=== PATIENT | female | born 1985 | race Caucasian/White ===

== ENCOUNTER 2017-03-17 08:46 | Emergency (ER) | payer MEDICAID ==
[2017-03-17 09:38] VITALS: BP 125/75
[2017-03-17 10:16] LABS: Basophils % (Auto) 1.1 % (0.0-1.8); Eosinophils % (Auto) 5.9 % (0.0-4.3); Hematocrit 39.8 % (30.3-42.9); Hemoglobin 12.9 gm/dl (10.1-14.3); Mean Corpuscular HGB Conc 32 % (30-34); Mean Corpuscular Volume 79 fl (79-97); Platelet Count 307 K/mm3 (140-440); Red Blood Count 5.04 M/mm3 (3.65-5.03); Red Cell Distribution Width 14.4 % (13.2-15.2); White Blood Count 9.4 K/mm3 (4.5-11.0)
[2017-03-17 10:19] LABS: Mean Corpuscular Hemoglobin 26 pg (28-32)
[2017-03-17 10:31] LABS: BUN/Creatinine Ratio 18; Blood Urea Nitrogen 9 mg/dL (7-17); Calcium 9.3 mg/dL (8.4-10.2); Carbon Dioxide 28 mmol/L (22-30); Glucose 98 mg/dL (65-100)
[2017-03-17 10:32] LABS: Alanine Aminotransferase 24 units/L (7-56); Albumin/Globulin Ratio 1.1 %; Alkaline Phosphatase 68 units/L (35-129); Anion Gap 17 mmol/L; Lipase 31 units/L (13-60); Potassium 4.5 mmol/L (3.6-5.0); Sodium 140 mmol/L (137-145); Total Protein 7.6 g/dL (6.3-8.2)
== END 2017-03-17 18:16 | disposition left against medical advice (07) ==
LOC: ED 08:46
DX: R10.9 Unspecified abdominal pain (principal); Z53.21 Procedure and treatment not carried out due to patient leaving prior to being seen by health care provider
CPT/HCPCS: 36415; 80053; 83690; 85025